=== PATIENT | female | born 1995 | race African-American/Black ===

== ENCOUNTER 2017-09-10 17:51 | Emergency (ER) | payer MEDICAID ==
[~2017-09-10] VITALS: Ht 167.6 cm; Wt 69.9 kg
[2017-09-10] MEDS ORDERED: Acetaminophen 500mg (ES) tab ORAL ONE (18:30)
[2017-09-10 18:58] LABS: BASOPHILS % (AUTO) 0.7 % (0.0-2.0); EOSINOPHILS % (AUTO) 3.9 % (0.0-3.0); HEMATOCRIT 37.1 % (37.0-47.0); HEMOGLOBIN 12.4 G/DL (12.0-16.0); LYMPHOCYTES % (AUTO) 21.3 % (20.0-45.0); MEAN CORPUSCULAR VOLUME 91 FL (80-99); MONOCYTES % (AUTO) 7.5 % (1.0-10.0); NEUTROPHILS % (AUTO) 66.5 % (45.0-75.0); PLATELET COUNT 281 K/UL (150-450); RED BLOOD COUNT 4.05 M/UL (4.20-5.40); RED CELL DISTRIBUTION WIDTH 11.2 % (11.6-14.8); WHITE BLOOD COUNT 12.1 K/UL (4.8-10.8)
[2017-09-10 18:59] LABS: APPEARANCE,URINE CLEAR; BILIRUBIN, URINE NEGATIVE (NEGATIVE); COLOR,URINE PALE YELLOW; GLUCOSE, URINE (UA) NEGATIVE (NEGATIVE); KETONES,URINE NEGATIVE (NEGATIVE); LEUKOCYTE ESTERASE ,URINE NEGATIVE (NEGATIVE); NITRITE,URINE NEGATIVE (NEGATIVE); PH,URINE 6 (4.5-8.0); PROTEIN,URINE NEGATIVE (NEGATIVE); UROBILINOGEN,URINE NORMAL MG/DL (0.0-1.0)
--- NOTE | 2017-09-10 19:00 | Emergency Room Report ---
History of Present Illness General Chief Complaint: Complications Source: Patient Present Illness HPI 22-year-old female patient presents ER complaining of spotting times one day. Reports not currently taking any control medications. reports last menstrual period was August 21, reports she has not seen a physician to be diagnosis or had any ultrasound performed, reports has not had test to confirm . Reports history of 2 pregnancies in the past, both times miscarried. Denies fever, chest pain, shortness of breath. Denies fainting. Denies dizziness. Denies other acute symptoms. Denies vaginal discharge. denies passage of clots. reports mild abdominal cramping during this time. Allergies: Coded Allergies: EGG (Verified Allergy, Unknown, 09/10/17) Patient History Past Medical History: see triage record Last Menstrual Period: 07/22/17 Reviewed Nursing Documentation: PMH: Agreed; PSxH: Agreed Nursing Documentation-PMH Past Medical History: No History, Except For Hx Asthma: Yes Review of Systems All Other Systems: negative except mentioned in HPI Physical Exam Vital Signs Date Time Temp Pulse Resp B/P (MAP) Pulse Ox O2 Delivery O2 Flow Rate FiO2 09/10/17 17:53 99.1 82 18 105/65 95 Room Air 99.1 Sp02 EP Interpretation: reviewed, normal General Appearance: well appearing, no apparent distress, alert, GCS 15, non- toxic Head: normocephalic, atraumatic Eyes: bilateral eye normal inspection, bilateral eye PERRL ENT: hearing grossly normal, normal pharynx, no angioedema, normal voice, uvula midline, moist mucus membranes Neck: full range of motion Respiratory: lungs clear, normal breath sounds, no rhonchi, no respiratory distress, no accessory muscle use, no wheezing, speaking full sentences Cardiovascular #1: regular rate, rhythm, no edema Gastrointestinal: soft, no mass, non-distended, no guarding, no rebound, tenderness - Suprapubic, other - Negative obturator, negative heel strike Genitourinary: no CVA tenderness, deferred Musculoskeletal: back normal, digits/nails normal, gait/station normal, normal range of motion, non-tender Psychiatric: mood/affect normal Skin: no rash Medical Decision Making PA Attestation Dr. Ash is my supervising Physician whom patient management has been discussed with. Diagnostic Impression: Primary Impression: Additional Impressions: Vaginal spotting Subchorionic hemorrhage ER Course Pt presents to ED c/o vaginal bleeding/spotting. DDX considered but are not limited to threatened , incomplete , complete , ectopic, UTI, septic . VITAL SIGNS are WNL, patient is afebrile Ordered CBC, CMP, Type and Screen, UA, UCG, bHCG, IV NS and pelvic US. Tylenol for pain control. ER COURSE: Patient resting comfortably, in no acute distress, nontoxic appearing. Patient reports pain symptoms resolved since onset. CBC and CMP unremarkable, mild elevation of WBC may be related to . hemoglobin within normal limits. UA results negative for nitrites, leukocyte esterase, WBCs, low suspicion for UTI, does not require antibiotic treatment at this time. Urine positive BetaHCG 15040 Rh antibody negative Blood type A positive Pelvic US shows IUP, heart rate 128, subchorionic hematoma noted, ovarian cysts noted. Explained to patient that subchorionic hemorrhages is a risk factor for Spontaneous , follow-up with [facility] in the next 1-2 days again taking vitamins. Into repeat imaging and labs. Informed patient to take Tylenol only for pain symptoms, do not take Motrin/ Ibuprofen. F/u with OBGYN in 48 hours, need repeat Beta HCG and US. DISCHARGE: -Rx provided for Tylenol for pain At this time pt. is stable for d/c to home. At this time patient is resting comfortably, in no acute distress, nontoxic appearing, smiling and talking without difficulty. Will provide printed patient care instructions, and any necessary prescriptions. Patient instructed to follow with OBGYN for further treatment and referral as needed. Care plan and follow up instructions have been discussed with the patient prior to discharge. Patient reports understanding and agreement to treatment plan. Patient questions asked and answered. ER precautions given, patient instructed to return to ER immediately for any new or worsening of symptoms. - Please note that this Emergency Department Report was dictated using [employer] teacher technology software, occasionally this can lead to erroneous entry secondary to interpretation by the dictation equipment. Labs Test 09/10/17 18:42 White Blood Count 12.1 K/UL (4.8-10.8) Red Blood Count 4.05 M/UL (4.20-5.40) Hemoglobin 12.4 G/DL (12.0-16.0) Hematocrit 37.1 % (37.0-47.0) Mean Corpuscular Volume 91 FL (80-99) Mean Corpuscular Hemoglobin 30.7 PG (27.0-31.0) Mean Corpuscular Hemoglobin Concent 33.6 G/DL (32.0-36.0) Red Cell Distribution Width 11.2 % (11.6-14.8) Platelet Count 281 K/UL (150-450) Mean Platelet Volume 7.3 FL (6.5-10.1) Neutrophils (%) (Auto) 66.5 % (45.0-75.0) Lymphocytes (%) (Auto) 21.3 % (20.0-45.0) Monocytes (%) (Auto) 7.5 % (1.0-10.0) Eosinophils (%) (Auto) 3.9 % (0.0-3.0) Basophils (%) (Auto) 0.7 % (0.0-2.0) Urine Color Pale yellow Urine Appearance Clear Urine pH 6 (4.5-8.0) Urine Specific [place] 1.015 (1.005-1.035) Urine Protein Negative (NEGATIVE) Urine Glucose (UA) Negative (NEGATIVE) Urine Ketones Negative (NEGATIVE) Urine Occult Blood Negative (NEGATIVE) Urine Nitrite Negative (NEGATIVE) Urine Bilirubin Negative (NEGATIVE) Urine Urobilinogen Normal MG/DL (0.0-1.0) Urine Leukocyte Esterase Negative (NEGATIVE) Urine HCG, Qualitative Positive (NEGATIVE) Sodium Level 137 MMOL/L (136-145) Potassium Level 4.1 MMOL/L (3.5-5.1) Chloride Level 102 MMOL/L (98-107) Carbon Dioxide Level 27 MMOL/L (21-32) Anion Gap 8 mmol/L (5-15) Blood Urea Nitrogen 9 mg/dL (7-18) Creatinine 0.6 MG/DL (0.55-1.30) Estimat Glomerular Filtration Rate > 60 mL/min (>60) Glucose Level 90 MG/DL (74-106) Calcium Level 8.6 MG/DL (8.5-10.1) Total Bilirubin 0.3 MG/DL (0.2-1.0) Aspartate Amino Transf (AST/SGOT) 16 U/L (15-37) Alanine Aminotransferase (ALT/SGPT) 18 U/L (12-78) Alkaline Phosphatase 56 U/L (46-116) Total Protein 7.6 G/DL (6.4-8.2) Albumin 3.8 G/DL (3.4-5.0) Globulin 3.8 g/dL Albumin/Globulin Ratio 1.0 (1.0-2.7) Lipase 75 U/L (73-393) Human Chorionic Gonadotropin, Quant 74509 mIU/mL (1-6) CT/MRI/US Diagnostic Results CT/MRI/US Diagnostic Results : Imaging Test Ordered: Pelvic US Impression per instrument technician: IUP, heart rate 128 subchorionic hemorrhage Ovarian cyst noted Last Vital Signs Date Time Temp Pulse Resp B/P (MAP) Pulse Ox O2 Delivery O2 Flow Rate FiO2 09/10/17 17:53 99.1 82 18 105/65 95 Room Air 99.1 Disposition: HOME, SELF-CARE Condition: Stable Scripts Acetaminophen* (TYLENOL EXTRA STRENGTH*) 500 Mg Tablet 500 MG ORAL Q8H PRN for Prn Headache/Temp > 101, #30 TAB 0 Refills Prov: Darius Stewart 09/10/17 Referrals: ANDI BENITEZ Patient Instructions: Subchorionic Hematoma, Vaginal Bleeding During , First Trimester, [id number] Additional Instructions: Follow up with [facility] in 1-2 days. Need repeat imaging and hCG levels. Needs to begin taking vitamins. Monitor subchronic hemorrhage, risk factor for miscarriage.. Followup with primary care provider in 3 -5 days. Take medications as directed. Do not take ibuprofen/Motrin for pain symptoms. May only take Tylenol/acetaminophen. Patient questions asked and answered. ER precautions given, patient instructed to return to ER immediately for any new or worsening of symptoms. HCG level 87937 Blood Type A positive Rh antibody negative Darius Stewart Sep 10, 2017 19:00
[2017-09-10 19:06] LABS: ANION GAP 8 mmol/L (5-15); BLOOD UREA NITROGEN 9 mg/dL (7-18); CALCIUM 8.6 MG/DL (8.5-10.1); CARBON DIOXIDE 27 MMOL/L (21-32); CHLORIDE 102 MMOL/L (98-107); CREATININE 0.6 MG/DL (0.55-1.30); POTASSIUM 4.1 MMOL/L (3.5-5.1); SODIUM 137 MMOL/L (136-145)
[2017-09-10 19:11] LABS: ALANINE AMINOTRANSFERASE 18 U/L (12-78); ALBUMIN 3.8 G/DL (3.4-5.0); ALKALINE PHOSPHATASE 56 U/L (46-116); ASPARTATE AMINO TRANSFERASE 16 U/L (15-37); BILIRUBIN,TOTAL 0.3 MG/DL (0.2-1.0)
[2017-09-10] MEDS ORDERED: TYLENOL EXTRA500 MG ORAL (20:58)
[2017-09-10 21:54] VITALS: BP 101/58
[2017-09-10 21:56] VITALS: BP 101/58
--- NOTE | 2017-09-11 14:24 | Diagnostic Imaging Report ---
Indication: Abdominal and pelvic pain. Technique: Transabdominal and transvaginal images Comparison: none Findings: Uterus measures 11.3 cm length by 5.1 cm AP. Within the endometrium, there is a gestational sac. This contains a pole with a crown-rump length of 7 mm, corresponding to an estimated gestational age of 6 weeks 4 days. There is positive heart activity, heart rate 128 bpm. There is a small subchorionic hemorrhage. No myometrial abnormality. Left ovary measures 6.3 cm in length, demonstrates a 3 cm corpus luteum. Right ovary measures 3.5 cm in length. No adnexal mass. No free cul-de-sac fluid Impression: Positive for 6 week 4 day single live intrauterine . Small subchorionic hemorrhage noted.
== END 2017-09-10 21:57 | disposition home or self-care (01) ==
LOC: EMR 19:21
DX: O26.851 Spotting complicating pregnancy, first trimester (principal); Z3A.01 Less than 8 weeks gestation of pregnancy; O46.91 Antepartum hemorrhage, unspecified, first trimester
CPT/HCPCS: 36415; 76801; 76830; 80053; 81003; 81025; 83690; 84702; 85025; 86850; 86900; 86901; 96360; 96374; 99284